=== PATIENT | male | born 1965 | race Caucasian/White ===

== ENCOUNTER 2018-10-07 09:38 | Day surgery (SDC) | payer OTHER ==
[~2018-10-07] VITALS: Ht 172.7 cm; Wt 85.4 kg
[2018-10-07] VITALS (8 sets, daily range): BP systolic 119–136; BP diastolic 75–91; PULSE 66–98; RESP 15–23; Ht 172.7 cm; Wt 85.4 kg
[~2018-10-07 09:38] MED LIST: AMLO5TAB4 PO; BENA20TA4 PO; CEFAZOLIN 2 GM/50 ML (PMX) 50 ML IVPB ONE; SOD CHLORIDE 0.9% 1,000 ML IV SCH
[2018-10-07] MEDS ORDERED: BUPIVACAINE 0.5%/EPI (SDV) 30 ML INJ ONE (12:03)
[2018-10-07] MEDS ORDERED: LIDOCAINE 1% (MPF) 30 ML INJ ONE (12:03)
[2018-10-07] MEDS ORDERED: BUPIVACAINE 0.25%/EPI (SDV) 10 ML INJ ONE ×2 (12:05→12:07)
[2018-10-07] MEDS ORDERED: FENTAnyl 50 MCG/ML VIAL ONE (12:07)
[2018-10-07] MEDS ORDERED: CEFAZOLIN 1 GM INJ ONE (12:31)
[2018-10-07] MEDS ORDERED: LACTATED RINGER'S 1,000 ML IV SCH (13:20)
[2018-10-07] MEDS ORDERED: morphine 2 MG INJ IV PRN (13:30)
[2018-10-07] MEDS ORDERED: HYDROCODONE/APAP (5/325) TAB PO PRN (13:30)
[2018-10-07] MEDS ORDERED: ONDANSETRON 4 MG INJ IV PRN (13:30)
== END 2018-10-07 14:26 | disposition home or self-care (01) ==
LOC: SDS 09:38
DX: L72.0 Epidermal cyst (principal); I10 Essential (primary) hypertension
CPT/HCPCS: 14001; 71045; 80048; 85025; 85610; 85730; 88307; 93005; J0690; J3010; Z7512; Z7610